=== PATIENT | male | born 1960 | race Caucasian/White ===

== ENCOUNTER 2023-07-20 12:35 | Emergency (ER) | payer SELFPAY ==
[~2023-07-20] VITALS: Ht 180.3 cm; Wt 93.0 kg
[2023-07-20 14:10] LABS: Influenza A Negative (NEGATIVE); Influenza B Negative (NEGATIVE)
[2023-07-20 14:10] LABS: BASOPHILS PERCENT AUTO 2 % (0-2); EOSINOPHILS ABSOLUTE AUTO 0.07 K/mm3 (0.00-0.68); EOSINOPHILS PERCENT AUTO 1 % (0-6); Hematocrit 50.8 % (37.0-53.0); Hemoglobin 16.9 g/dL (13.5-17.5); IMMATURE GRAN ABSOLUTE AUTO 0.02 K/mm3 (0.00-0.10); IMMATURE GRAN PERCENT AUTO 0 % (0-1); LYMPHOCYTES ABSOLUTE AUTO 1.34 K/mm3 (0.84-5.20); LYMPHOCYTES PERCENT AUTO 21 % (21-46); MONOCYTES ABSOLUTE AUTO 0.55 K/mm3 (0.16-1.47); MONOCYTES PERCENT AUTO 9 % (4-13); Mean Corpuscular HGB 31.2 pg (26.0-34.0); Mean Corpuscular HGB Conc 33.3 g/dL (31.5-36.5); Mean Corpuscular Volume 94 fL (80-100); Mean Platelet Volume 9.2 fL (9.1-12.4); NEUTROPHILS PERCENT AUTO 67 % (41-73); Platelet Count 192 K/mm3 (150-400); RDW Coefficient Variation 13.6 % (11.7-14.2); RDW Standard Deviation 47.2 fL (35.1-46.3); Red Blood Cell Count 5.42 M/mm3 (4.30-5.90); White Blood Cell Count 6.28 K/mm3 (4.00-11.30)
[2023-07-20 14:11] LABS: SARS-Cov-2 (COVID-19) PCR, MMC NEGATIVE (NEGATIVE)
[2023-07-20 14:27] LABS: Albumin/Globulin Ratio 0.7 (0.8-1.8); Bilirubin, Total 0.9 mg/dL (0.1-1.0); Bun/Creatinine Ratio 18.9 (12.0-20.0); Calcium, Blood 9.4 mg/dL (8.5-10.1); Creatinine, Blood 1.06 mg/dL (0.60-1.20); Globulin, Blood 4.6 g/dL (2.2-4.0); Potassium, Blood 4.5 mmol/L (3.5-5.5); Total Protein, Blood 7.6 g/dL (6.4-8.2)
[2023-07-20 15:52] VITALS: BP 164/95
== END 2023-07-20 16:36 | disposition left against medical advice (07) ==
LOC: ER 12:35
PROVIDERS: Student in an Organized Health Care Education/Training Program
DX: R06.02 Shortness of breath (principal); Z53.21 Procedure and treatment not carried out due to patient leaving prior to being seen by health care provider
CPT/HCPCS: 71046; 80053; 83880; 85025; 87804; 87807; 93005; 93010; 99282-25; U0002

== ENCOUNTER 2023-07-26 09:03 | Inpatient (IN) | payer MEDICARE ==
[~2023-07-26] VITALS: Ht 180.3 cm; Wt 106.0 kg
[2023-07-26 09:33] LABS: PCO2 Venous 38.6 mmHg (38-42)
[2023-07-26 09:34] LABS: Base Excess Venous -0.6 mmol/L
[2023-07-26 09:39] LABS: BASOPHILS ABSOLUTE AUTO 0.07 K/mm3 (0.00-0.23); BASOPHILS PERCENT AUTO 1 % (0-2); EOSINOPHILS ABSOLUTE AUTO 0.05 K/mm3 (0.00-0.68); EOSINOPHILS PERCENT AUTO 1 % (0-6); Hematocrit 51.9 % (37.0-53.0); Hemoglobin 16.9 g/dL (13.5-17.5); IMMATURE GRAN ABSOLUTE AUTO 0.02 K/mm3 (0.00-0.10); IMMATURE GRAN PERCENT AUTO 0 % (0-1); LYMPHOCYTES ABSOLUTE AUTO 1.49 K/mm3 (0.84-5.20); LYMPHOCYTES PERCENT AUTO 20 % (21-46); MONOCYTES ABSOLUTE AUTO 0.65 K/mm3 (0.16-1.47); MONOCYTES PERCENT AUTO 9 % (4-13); Mean Corpuscular HGB Conc 32.6 g/dL (31.5-36.5); Mean Corpuscular Volume 95 fL (80-100); Mean Platelet Volume 9.5 fL (9.1-12.4); NEUTROPHILS ABSOLUTE AUTO 5.03 K/mm3 (1.96-9.15); NEUTROPHILS PERCENT AUTO 69 % (41-73); Platelet Count 189 K/mm3 (150-400); RDW Coefficient Variation 13.9 % (11.7-14.2); RDW Standard Deviation 48.3 fL (35.1-46.3); Red Blood Cell Count 5.46 M/mm3 (4.30-5.90); White Blood Cell Count 7.31 K/mm3 (4.00-11.30)
[2023-07-26 10:01] LABS: Albumin, Blood 3.1 g/dL (3.4-5.0); Albumin/Globulin Ratio 0.7 (0.8-1.8); Bilirubin, Total 0.7 mg/dL (0.1-1.0); Creatinine, Blood 1.11 mg/dL (0.60-1.20); Globulin, Blood 4.2 g/dL (2.2-4.0); Potassium, Blood 4.2 mmol/L (3.5-5.5); Total Protein, Blood 7.3 g/dL (6.4-8.2)
[2023-07-26 12:35] VITALS: BP 164/124
--- NOTE | 2023-07-26 13:18 | NUR ---
ADMISSION: PT ARRIVED TO PCU 6 AT APPROX 1245 VIA GURNEY. PT ABLE TO WALK TO HOSPITAL BED IND. ALERT AND ORIENTED X4, ABLE TO FOLLOW COMMANDS AND MAKE NEEDS KNOWN. COOPERATIVE WITH CARE. PEERLA. STRENGTH EQUAL BILATERALLY. RESP 20-22. LUNG SOUNDS COARSE THROUGHOUT, DIM IN BASES. PT WITH OCC EXP WHEEZE. PT HYPERTENSIVE, AWARE, NEW ORDERS RECEIVED, SEE EMAR. HR ST-100. AFEBRILE. ABD SOFT, NON TENDER, BOWEL SOUNDS +. +4 EDEMA NOTED IN BLE, PT STATES PROGRESSIVLY GETTING WORSE X1 MONTH. HX OF PAD. BLE SCALING, CYANOTIC. PEDAL PULSES FAINT. RADIAL PULSES STRONG. PT DENIES TAKING HOME MEDICATION, OCCASIONAL TYLENOL FOR HEADACHE. PT RECENTLY MOVED FROM [place], NO PCP ESTABLISHED. CURRENTLY DIURESING, STATES BREATHING IMPROVEMENT, ABLE TO USE URINAL IND AT BEDSIDE. PT ORIENTED TO ROOM AND CALL LIGHT SYSTEM. CURRENTLY SITTING ON SIDE OF BED EATING LUNCH. BED IN LOW, CALL LIGHT IN REACH.
[2023-07-26 14:50] VITALS: BP 159/105
--- NOTE | 2023-07-26 17:05 | NUR ---
SHIFT SUMMARY: NO ACUTE CHANGES SINCE ADMISSION. PT CONTINUES TO DIURESE WELL. APPROX 1200ML OF OUTPUT SO FAR THIS SHIFT. ONE BM. IND IN ROOM. COOPERATIVE WITH CARE. CURRENTLY SITTING IN BED WITH FRIEND AT BEDSIDE. BED IN LOW, CALL LIGHT IN REACH, WILL REPORT TO ONCOMING RN.
[2023-07-26 20:07] VITALS: BP 133/86
[2023-07-26 23:19] VITALS: BP 121/75
[2023-07-26 23:25] LABS: U Amphetamine Screen Not Detected; U Barbituate Screen Not Detected; U Benzodiazapine Screen Not Detected; U Buprenorphine Screen Not Detected; U Cannabinoids Screen DETECTED; U Cocaine Screen Not Detected; U Methadone Screen Not Detected; U Methamphetamine Screen Not Detected; U Opiates Screen Not Detected; U Oxycodone Screen Not Detected; U Phencyclidine Screen Not Detected
[2023-07-27] MEDS ORDERED: IBUP200 PO (02:39)
[2023-07-27 04:37] LABS: BASOPHILS ABSOLUTE AUTO 0.11 K/mm3 (0.00-0.23); BASOPHILS PERCENT AUTO 2 % (0-2); EOSINOPHILS ABSOLUTE AUTO 0.12 K/mm3 (0.00-0.68); EOSINOPHILS PERCENT AUTO 2 % (0-6); Hematocrit 51.9 % (37.0-53.0); Hemoglobin 17.3 g/dL (13.5-17.5); IMMATURE GRAN ABSOLUTE AUTO 0.02 K/mm3 (0.00-0.10); IMMATURE GRAN PERCENT AUTO 0 % (0-1); LYMPHOCYTES ABSOLUTE AUTO 1.33 K/mm3 (0.84-5.20); LYMPHOCYTES PERCENT AUTO 19 % (21-46); MONOCYTES ABSOLUTE AUTO 0.62 K/mm3 (0.16-1.47); MONOCYTES PERCENT AUTO 9 % (4-13); Mean Corpuscular HGB 31.3 pg (26.0-34.0); Mean Corpuscular HGB Conc 33.3 g/dL (31.5-36.5); Mean Corpuscular Volume 94 fL (80-100); Mean Platelet Volume 9.6 fL (9.1-12.4); NEUTROPHILS ABSOLUTE AUTO 4.85 K/mm3 (1.96-9.15); NEUTROPHILS PERCENT AUTO 69 % (41-73); Platelet Count 196 K/mm3 (150-400); RDW Coefficient Variation 13.7 % (11.7-14.2); RDW Standard Deviation 46.9 fL (35.1-46.3); Red Blood Cell Count 5.53 M/mm3 (4.30-5.90); White Blood Cell Count 7.05 K/mm3 (4.00-11.30)
[2023-07-27 04:48] VITALS: BP 121/78
[2023-07-27 04:59] LABS: Bun/Creatinine Ratio 18.7 (12.0-20.0); Calcium, Blood 9.4 mg/dL (8.5-10.1); Creatinine, Blood 1.34 mg/dL (0.60-1.20); Potassium, Blood 3.5 mmol/L (3.5-5.5)
--- NOTE | 2023-07-27 05:08 | NUR ---
SHIFT SUMMARY A/Ox4 AND COOPERATIVE WITH CARE. ANSWERS QUESTIONS APPROPRIATELY AND ABLE TO MAKE HIS NEEDS KNOWN. NO ACUTE EVENTS OVERNIGHT FOR PT WAS ABLE TO GET INTERMITTENT SLEEP DURING THE SHIFT. CARDIAC, REMAINS IN SR-ST 80-100'S T/O THE NIGHT WITHIN NO REPORTS OF CP OR PRESSURE. SBP HAS BEEN STABLE RANGING 120-130'S. RESPIRATORY, MAINTAINS SPO2 >90% ON RA. CONTINUES TO DEMONSTRATE DYSPNEA WITH MILD EXERTION. OFTEN LS HEARD WITH EXPIRATORY WHEEZES. BREATHING TREATMENTS PRN. INTERMITTNET MOIST, BUT RARELY PRODUCTIVE COUGH NOTED. GI/, ABLE TO INDEPENDENTLY AMBULTE TO BATHROOM VOIDING YELLOW URINE. DENIES ANY ABD PAIN, N/V/D. PAIN MANAGED WELL WITH PRN PAIN MEDICATIONS. BLE CONTINUE TO BE SWOLLEN, BUT NO WEEPING NOTED. ECHO SCHEDULED FOR TODAY. NO NEW ORDERS AT THIS TIME, WILL REPORT TO ONCOMING RN. JITENDRA LANDERS OF THIS NOTE.
[2023-07-27 07:30] VITALS: BP 139/99
[2023-07-27 15:07] VITALS: BP 171/100
--- NOTE | 2023-07-27 17:41 | NUR ---
SHIFT SUMMARY PT REMAINS ALERT AND ORIENTED. PT HAS BEEN ON ROOM AIR ALL SHIFT. PT HAS DENIED SOB SINCE THIS AM. PT TOLERATING AMBULATING IN THE HALLWAY. PT HAS HAD GOOD URINE OUTPUT THIS SHIFT. PT DENIES ANY PAIN. SWELLING TO LEGS IS UNCHANGED SINCE AM ASSESSMENT. PT TO BE NPO AT MIDNIGHT TONIGHT FOR STRESS TEST IN THE AM. WILL CONTINUE TO MONITOR AND REPORT TO ONCOMING GLORIA
[2023-07-27 19:49] VITALS: BP 158/90
[2023-07-28 03:41] VITALS: BP 153/99
[2023-07-28 04:23] LABS: BASOPHILS ABSOLUTE AUTO 0.07 K/mm3 (0.00-0.23); BASOPHILS PERCENT AUTO 1 % (0-2); EOSINOPHILS ABSOLUTE AUTO 0.11 K/mm3 (0.00-0.68); EOSINOPHILS PERCENT AUTO 2 % (0-6); Hematocrit 52.4 % (37.0-53.0); Hemoglobin 17.6 g/dL (13.5-17.5); IMMATURE GRAN ABSOLUTE AUTO 0.02 K/mm3 (0.00-0.10); IMMATURE GRAN PERCENT AUTO 0 % (0-1); LYMPHOCYTES ABSOLUTE AUTO 1.54 K/mm3 (0.84-5.20); LYMPHOCYTES PERCENT AUTO 23 % (21-46); MONOCYTES ABSOLUTE AUTO 0.78 K/mm3 (0.16-1.47); MONOCYTES PERCENT AUTO 11 % (4-13); Mean Corpuscular HGB 31.5 pg (26.0-34.0); Mean Corpuscular HGB Conc 33.6 g/dL (31.5-36.5); Mean Corpuscular Volume 94 fL (80-100); Mean Platelet Volume 9.7 fL (9.1-12.4); NEUTROPHILS PERCENT AUTO 63 % (41-73); Platelet Count 181 K/mm3 (150-400); RDW Coefficient Variation 13.8 % (11.7-14.2); RDW Standard Deviation 47.5 fL (35.1-46.3); Red Blood Cell Count 5.59 M/mm3 (4.30-5.90); White Blood Cell Count 6.82 K/mm3 (4.00-11.30)
[2023-07-28 04:51] LABS: Albumin, Blood 3.1 g/dL (3.4-5.0); Albumin/Globulin Ratio 0.7 (0.8-1.8); Bilirubin, Total 0.8 mg/dL (0.1-1.0); Bun/Creatinine Ratio 23.9 (12.0-20.0); Calcium, Blood 9.2 mg/dL (8.5-10.1); Creatinine, Blood 1.38 mg/dL (0.60-1.20); Globulin, Blood 4.4 g/dL (2.2-4.0); Potassium, Blood 3.7 mmol/L (3.5-5.5); Total Protein, Blood 7.5 g/dL (6.4-8.2)
--- NOTE | 2023-07-28 05:11 | NUR ---
SHIFT SUMMARY A/Ox4 AND COOPERATIVE WITH CARE. ANSWERS QUESTIONS APPROPRIATELY AND ABLE TO MAKE HIS NEEDS KNOWN. NO ACUTE EVENTS OVERNIGHT, BUT PT WAS NOT ABLE TO SLEEP MUCH T/O THE NIGHT. CARDIAC, REMAIN SR-ST 90-100'S T/O THE NIGHT WITH NO REPORTS OF CP OR PRESSURE. SBP HAS BEEN STABLE, BUT ELEVATED IN THE 150'S. RESPIRATORY, MAINTAINS SPO2 >90% ON RA. CONTINUES TO DEMONSTRATE DYSPNEA WITH MILD EXERTION. CONTINUES TO HAVE MOIST COUGH WITH POOR PRODUCTION. GI/ ABLE TO INDEPENDETLY AMBULATE TO BATHROOM TO VOID YELLOW URINE. DENIES N/V/D OR ABD PAIN AT THIS TIME. PT HAS BEEN NPO SINCE ADINA FOR SCHEDULED STRESS TEST THIS AM. NO NEW ORDERS AT THIS TIME. [facility] JITENDRA LANDERS OF THIS NOTE.
[2023-07-28 07:32] VITALS: BP 145/100
[2023-07-28 12:03] VITALS: BP 146/80
[2023-07-28 16:18] VITALS: BP 142/86
--- NOTE | 2023-07-28 17:35 | NUR ---
END OF SHIFT PT A&O X4, VERY AGITATED & RAISING VOICE AT STAFF THIS AM, REPORTING NOT BEING ABLE TO SLEEP AT ALL LAST NIGHT. PT THEN APOLOGETIC UPON RE-ENTRY TO & THEN PLEASANT & COOPERATIVE REMAINDER OF SHIFT. PT VSS. SPO2 > 92% ON RA. WHEEZING T/O LUNGS. BREATHING TXs PROVIDED PER RT. PT W/ OCCASSIONAL COUGH W/ PT REPORT OF "SCANT CLEAR" SPUTUM. PT REPORTING USING FLUTTER VALVE AT BEDSIDE. MONITOR SHOWING SR-ST, HR 90s-110s. PT INDEPENDENT IN RM & AMBULATING IN HALLWAY. ONE DAY STRESS TEST DONE TODAY, PT AWAITING RESULTS & EXPRESSING READINESS TO DISCHARGE HOME IN AM.
[2023-07-28 19:57] VITALS: BP 136/85
[2023-07-29 00:04] VITALS: BP 129/93
[2023-07-29 00:32] VITALS: BP 129/93
[2023-07-29 05:10] LABS: Bun/Creatinine Ratio 24.4 (12.0-20.0); Calcium, Blood 9.1 mg/dL (8.5-10.1); Creatinine, Blood 1.27 mg/dL (0.60-1.20); Potassium, Blood 3.7 mmol/L (3.5-5.5)
[2023-07-29 06:28] VITALS: BP 132/86
--- NOTE | 2023-07-29 06:45 | NUR ---
NOC SHIFT SUMMARY PT ORIENTED X4, CALM AND COOPERATIVE. VSS, SR ON TELEMETRY. SLEPT WELL AFTER RECEIVING ORDER FOR 100MG TRAZODONE AND MELATONIN FROM DR. BURNETT. PT STATES HE HAD NOT SLEPT IN DAYS. NPO @ 0000 FOR POTENTIAL CATH VS CARDIAC CONSULT AFTER STRESS TEST YESTERDAY. DENIES PAIN OR DISCOMFORT. ON RA. COARSE LUNG SOUNDS AND COUGH WITH HX OF COPD. PRN NEB TX PER RT. PT UAL. WILL PASS ON TO DAY RN
[2023-07-29 07:47] VITALS: BP 128/82
[2023-07-29] MEDS ORDERED: ATOR40TA PO (10:26)
[2023-07-29] MEDS ORDERED: ASPI81CH PO (10:26)
[2023-07-29] MEDS ORDERED: ALBU2.5V5 INH (10:26)
[2023-07-29] MEDS ORDERED: LOSA50 PO (10:27)
[2023-07-29] MEDS ORDERED: JARDIANCE10 MG PO (10:27)
[2023-07-29] MEDS ORDERED: METO25ER PO (10:27)
[2023-07-29] MEDS ORDERED: TORSE20 PO (10:28)
--- NOTE | 2023-07-29 11:03 | NUR ---
DISCHARGE HOME PT A&O X4. VSS. SPO2 > 92% ON RA. MONITOR SHOWING SR, HR 90s. MDs TO BEDSIDE THIS AM, DISCUSSING STRESS TEST RESULTS W/ PT & OKAY FOR PT TO EAT BREAKFAST THIS AM W/ REPORT OF NO CARDIOLOGY CONSULT NEEDED & PT OKAY FOR DISCHARGE. BREAKFAST TRAY PROVIDED TO PT UPON ARRIVAL. PT YELLING AT STAFF THIS AM OVER BREAKFAST TRAY PROVIDED, C/O COLD OMELETTE W/ MUSHROOMS. PT REPORTING SEVERE MUSHROOM ALLERGY THAT WAS NOT ORIGINALLY REPORTED. MUSHROOMS ADDED TO PT ALLERGY LIST & NEW MEAL PROVIDED TO PT. TIME SPENT THERAPEUTICALLY LISTENING TO PT YELL, PT THEN CALMING & TALKING TO STAFF W/OUT YELLING. PT REPORTING DISPLEASURE W/ FOOD PROVIDED, STATING HE WILL REPORT TO [facility] OFFICIALS OF THE HOSPITAL FOOD PROBLEM. PT THEN LEFT PRIOR TO DISCHARGE PAPER WORK COMPLETION. PT DISCHARGE MEDICATIONS FAXED TO [facility] FOR PT TO BE ABLE TO LICENSED [place].
== END 2023-07-29 10:15 | disposition left against medical advice (07) | DRG 280 ==
LOC: ER 09:03 → PCU 09:04
PROVIDERS: Emergency Medicine; Family Medicine; Student in an Organized Health Care Education/Training Program; ADMIT Hospitalist
DX: I11.0 Hypertensive heart disease with heart failure (principal); I50.23 Acute on chronic systolic (congestive) heart failure; I21.A1 Myocardial infarction type 2; I16.1 Hypertensive emergency; I16.0 Hypertensive urgency; I25.10 Atherosclerotic heart disease of native coronary artery without angina pectoris; R91.1 Solitary pulmonary nodule; I87.2 Venous insufficiency (chronic) (peripheral); J44.9 Chronic obstructive pulmonary disease, unspecified; I73.9 Peripheral vascular disease, unspecified; I27.20 Pulmonary hypertension, unspecified; Z53.29 Procedure and treatment not carried out because of patient's decision for other reasons; Z95.5 Presence of coronary angioplasty implant and graft; Z72.0 Tobacco use
CPT/HCPCS: 36415; 71045; 78452; 80048; 80053; 82803; 83880; 84443; 84484; 85025; 93005; 93010; 93017; 94640; 94664; 94760; 96374; 96375; 96376; 99285-25; A9270; A9500; C8929; G0378; J0360; J0706; J1650; J1940; J2785; Q9957